=== PATIENT | female | born 1995 | race African-American/Black ===

== ENCOUNTER 2016-11-02 20:58 | Emergency (ER) | payer OTHER ==
[~2016-11-02 20:58] MED LIST: ANTI2TAB PO; ZOFR4TAB3 PO
[2016-11-02 20:59] VITALS: BP 118/70; PULSE 98; RESP 16; TEMP 98.1; O2SAT 100
[2016-11-02] MEDS ORDERED: VENTAER INH (21:07)
--- NOTE | 2016-11-02 21:59 | PD ---
HPI Chief Complaint: Skin Problem Time Seen by Provider: 21:55 Travel History International Travel<30 days: No Contact w/Intl Traveler<30days: No Traveled to known affect area: No History of Present Illness HPI Patient comes in for evaluation of lump in her left groin/vaginal area ongoing for approximately a week that has gotten a little bit smaller and has since developed a second one in her vaginal area she first noticed night. Patient denies any pain other than when she palpates the area. Patient describes the pain as a soreness. Denies any dysuria, , nausea, vomiting, vaginal discharge, fevers, abdominal pain, or history of anything like this. Patient denies doing anything for this. PFSH Past Medical History Hx Anticoagulant Therapy: No Asthma: Yes Cardiovascular Problems: No Chemotherapy: No Cerebrovascular Accident: No Developmental Delay: No Diabetes: No Diminished Hearing: No Respiratory: Yes Immunizations Current: Yes ?: Unknown LMP: 10/22/16 : 0 Past Surgical History Hysterectomy: No Oral Surgery: Yes (T AND A) Tonsillectomy: Yes (T&A) Social History Alcohol Use: Yes (OCCASIONALLY) Tobacco Use: No Substance Use: No Allergies-Medications (Allergen,Severity, Reaction): Coded Allergies: *MDRO Multi-Drug Resistant Organism (Unverified Allergy, Unknown, 11/02/16) MRSA 2013 Reported Meds & Prescriptions Reported Meds & Active Scripts Active Bactrim DS (Sulfamethoxazole-Trimethoprim) 800-160 Mg Tab 1 Tab PO BID Reported Ventolin Hfa 18 GM Inh (Albuterol Sulfate) 90 Mcg/Act Aer 1 Puff INH Q4H PRN Review of Systems Except as stated in HPI: all other systems reviewed are Neg Physical Exam Narrative GENERAL: Well-developed, well nourished, in no acute distress, and non-ill appearing. SKIN: Warm and dry. HEAD: Atraumatic. Normocephalic. EYES: Pupils equal and round. EOMI. No scleral icterus. No injection or drainage. ENT: No nasal bleeding or discharge. Mucous membranes pink and moist. NECK: Trachea midline. Supple. No nuclear rigidity. RESPIRATORY: No accessory muscle use. No respiratory distress. GASTROINTESTINAL: Abdomen soft, non-tender, nondistended. Hepatic and splenic margins not palpable. No pulsatile mass. GENITOURINARY: Normal external genitalia without lesion or erythema. Appears to be a cyst versus a small abscess between the urethra and vaginal opening. There is purulent drainage coming from this when a small amount of pressure is applied. Patient reports tenderness to the area. Culture was obtained. This exam was performed presence of staffing associate Cindy at all times. MUSCULOSKELETAL: No obvious deformities. No clubbing. No cyanosis. No edema. Full range of motion. NEUROLOGICAL: Awake and alert. No obvious cranial nerve deficits. Motor grossly within normal limits. Normal speech. PSYCHIATRIC: Appropriate mood and affect; insight and judgment normal. Data Data Last Documented VS Vital Signs Date Time Temp Pulse Resp B/P Pulse Ox O2 Delivery O2 Flow Rate FiO2 11/02/16 21:42 80 20 11/02/16 20:59 98.1 118/70 100 Orders Urinalysis - C+S If Indicated (11/02/16 21:42) Ed Urine Pregnancytest Poc (11/02/16 21:42) Urine Culture (11/02/16 21:45) Sulfamet-Trimeth Ds 800-160 Mg (Bactrim (11/02/16 22:45) Genital Culture(C&S)(Gc)(Gbs) (11/02/16 21:45) Labs Laboratory Tests Test 11/02/16 21:45 Urine Color YELLOW Urine Turbidity HAZY Urine pH 7.0 Urine Specific Hyder 1.026 Urine Protein TRACE mg/dL Urine Glucose (UA) NEG mg/dL Urine Ketones NEG mg/dL Urine Occult Blood SMALL Urine Nitrite NEG Urine Bilirubin NEG Urine Urobilinogen 4.0 MG/DL Urine Leukocyte Esterase MOD Urine RBC 11 /hpf Urine WBC 12 /hpf Urine Squamous Epithelial 2 /hpf Cells Urine Mucus FEW /lpf Microscopic Urinalysis Comment CULTURE INDICATED MDM Medical Decision Making Medical Screen Exam Complete: Yes Emergency Medical Condition: Yes Differential Diagnosis UTI, urethral cyst, Bartholin cyst, abscess, other Narrative Course Patient in no obvious distress upon re-evaluation. All pertinent laboratory result(s) discussed with patient. Patient was asked if they wanted to speak to my attending, which the patient did not wish to do at this time. Discussed patient with Dr. Ríos, who is in agreement with plan of care and disposition. Any questions/concerns in reference to patient diagnosis/condition discussed and clarified prior to patient's discharge. Reinforced sheer importance of close follow up with patient's primary physician or primary care clinic. Instructed patient to return to ED immediately, if symptoms return/worsen. Pt showed understanding of above instructions. Further instructions and recommendations were detailed in discharge paperwork. Pt ambulated without difficulty out of ED at discharge. Diagnosis Primary Impression: Vaginal cyst Referrals: Beata Mendez MD Patient Instructions: Abscess (ED), Bartholin Cyst (GEN), General Instructions Additional Instructions: Follow up with [facility] this week for re-evaluation. Take all medication as prescribed. Return to the ER if symptoms get worse. Med/Other Pt SpecificInfo: Prescription(s) given Scripts Sulfamethoxazole-Trimethoprim (Bactrim DS)800-160 Mg Tab1 Tab PO BID #20 TAB Ref 0 Prov:Chelsey Ríos MD 11/02/16 Disposition: 01 DISCHARGE HOME Condition: Stable Xavier Menendez Nov 02, 2016 21:59
[2016-11-02 22:20] LABS: BLOOD, URINE SMALL (NEG); COMMENT (UR) CULTURE INDICATED; CULTURE IF INDICATED CULTURE INDICATED; GLUCOSE,URINE NEG (NEG); KETONE, URINE NEG (NEG); MUCUS URINE FEW /lpf (OCC); NITRITE,URINE NEG (NEG); SQUAMOUS EPITHELIAL CELL URINE 2 /hpf (0-5); URINE COLOR YELLOW (YELLW/STRAW)
[2016-11-02] MEDS ORDERED: BACT800T5 PO (22:41)
[2016-11-02] MEDS ORDERED: SULFAMETHOXAZOLE-TRIMETHOPRIM DS 800-160 MG TAB PO ONE (22:45)
== END 2016-11-03 01:18 | disposition home or self-care (01) ==
LOC: NEPC 20:58
DX: N89.8 Other specified noninflammatory disorders of vagina (principal); N39.0 Urinary tract infection, site not specified; B95.2 Enterococcus as the cause of diseases classified elsewhere; B95.8 Unspecified staphylococcus as the cause of diseases classified elsewhere
CPT/HCPCS: 81001; 84703; 86403; 87070; 87077; 87086; 87186; 87205; 99283